=== PATIENT | female | born 1990 | race Two or more races ===

== ENCOUNTER 2018-03-27 03:05 | Inpatient (IN) ==
[2018-03-27 03:17] VITALS: BMI 27.2
[2018-03-27 03:35] LABS: BILIRUBIN,URINE NEGATIVE (NEGATIVE); BLOOD/HEMOGLOBIN,URINE 3+ (NEGATIVE); GLUCOSE, URINE NEGATIVE (NEGATIVE); KETONES,URINE 4+ (NEGATIVE); LEUKOCYTE ESTERASE ,URINE 3+ (NEGATIVE); NITRITES,URINE NEGATIVE (NEGATIVE); PROTEIN,URINE 2+ (NEGATIVE); UROBILINOGEN,URINE NORMAL (NORMAL)
[2018-03-27 03:38] LABS: APPEARANCE,URINE HAZY (CLEAR); COLOR,URINE YELLOW (YELLOW)
[2018-03-27 03:39] LABS: BACTERIA,URINE 1+ /HPF (NEGATIVE); MUCUS,URINE FEW /HPF (NEGATIVE); SQUAMOUS EPITHELIAL CELL,UR FEW /HPF (NEGATIVE)
[2018-03-27 03:43] LABS: AMNISURE ROM TEST NO MEMBRANES RUPTURE (NO RUPTURE)
[2018-03-27] MEDS ORDERED: D5 1/2 NS 1000 ML 1,000 ML IV ONE (03:59)
[2018-03-27] MEDS ORDERED: D5 1/2 NS 1000 ML 1,000 ML IV SCH (04:00)
[2018-03-27] MEDS ORDERED: AQUA-MEPHYTON ADULT INJ ONE (04:13)
[2018-03-27] MEDS ORDERED: PITOCIN IVP ONE (04:26)
[2018-03-27] MEDS ORDERED: PHENERGAN INJ 25 MG IV PRN (04:28)
[2018-03-27] MEDS ORDERED: MOTRIN TAB 800 MG PO PRN ×2 (04:28→05:11)
[2018-03-27] MEDS ORDERED: D5 1/2 NS 1L W PITOCIN 20 UNITS/L 20 UNITS/1,000 ML BAG IV ONE (04:32)
[2018-03-27] MEDS ORDERED: D5 1/2 NS 1000 ML 1,000 ML with PITOCIN 20 UNITS IV SCH ×2 (05:00)
[2018-03-27] MEDS ORDERED: DERMOPLAST SPRAY TOP PRN (05:11)
[2018-03-27] MEDS ORDERED: FLUVIRIN IM ONE (08:00)
[2018-03-27] MEDS ORDERED: ADACEL or BOOSTRIX TDaP VACCINE IM ONE (16:09)
[2018-03-28 06:48] LABS: HEMATOCRIT 29.2 % (36.0-47.0); HEMOGLOBIN 9.9 g/dL (12.0-16.0)
[2018-03-28 12:37] VITALS: BP 112/56
== END 2018-03-28 13:50 | disposition home or self-care (01) | DRG 807 ==
LOC: ER 03:05 → LD 04:00 → MED/SURG 05:20
PROVIDERS: ADMIT Obstetrics & Gynecology Obstetrics; ATTEND Obstetrics & Gynecology Obstetrics
DX: Z3A.39 39 weeks gestation of pregnancy; Z23 Encounter for immunization; Z37.0 Single live birth; O80 Encounter for full-term uncomplicated delivery
CPT/HCPCS: 36415; 59409; 81001; 84112; 85014; 85018; 87086; 90686; 90715; 96365; 99284; A4216; A4222; J2590; J3430; S5010

== ENCOUNTER 2022-07-20 05:37 | Inpatient (IN) ==
[2022-07-20 06:00] VITALS: BMI 29.2
[2022-07-20 06:21] LABS: APPEARANCE,URINE CLEAR (CLEAR); BILIRUBIN,URINE NEGATIVE (NEGATIVE); BLOOD/HEMOGLOBIN,URINE NEGATIVE (NEGATIVE); COLOR,URINE STRAW (YELLOW); GLUCOSE, URINE NEGATIVE (NEGATIVE); KETONES,URINE NEGATIVE (NEGATIVE); LEUKOCYTE ESTERASE ,URINE NEGATIVE (NEGATIVE); NITRITES,URINE NEGATIVE (NEGATIVE); PROTEIN,URINE 1+ (NEGATIVE); UROBILINOGEN,URINE NORMAL (NORMAL)
[2022-07-20 06:25] LABS: BACTERIA,URINE NEGATIVE /HPF (NEGATIVE); RBC,URINE 0-2 /HPF (0-3); SQUAMOUS EPITHELIAL CELL,UR FEW /HPF (NEGATIVE)
[2022-07-20 06:28] LABS: AMNISURE ROM TEST THERE IS A RUPTURE (NO RUPTURE)
[2022-07-20] MEDS ORDERED: REGLAN INJ 10 MG VIAL IVP PRN (06:37)
[2022-07-20] MEDS ORDERED: PITOCIN IVP ONE (06:37)
[2022-07-20] MEDS ORDERED: D5 LR + PITOCIN 10 UNITS/L 10 UNITS/1,000 ML BAG IV PRN (06:37)
[2022-07-20] MEDS ORDERED: STADOL INJ IVP PRN (06:37)
[2022-07-20] MEDS ORDERED: D5 1/2 NS 1,000 ML 1,000 ML IV ONE (06:57)
[2022-07-20] MEDS ORDERED: PITOCIN ONE (06:57)
[2022-07-20] MEDS ORDERED: BETADINE SOLN ONE (06:57)
[2022-07-20] MEDS ORDERED: D5 1/2 NS 1,000 mL + PITOCIN 20 UNITS/L IV 20 UNITS/1,000 ML BAG IV ONE (06:58)
[2022-07-20] MEDS ORDERED: D5 LR + PITOCIN 10 UNITS/L 10 UNITS/1,000 ML BAG IV ONE (06:58)
[2022-07-20 07:09] LABS: RED CELL DISTRIBUTION WIDTH 15.3 % (11.6-16.5)
[2022-07-20 07:19] LABS: ALANINE AMINOTRANSFERASE 24 Units/L (12-78); ALBUMIN 2.7 g/dL (3.4-5.0); ALKALINE PHOSPHATASE 188 Units/L (46-116); ASPARTATE AMINO TRANSFERASE 29 Units/L (15-37); BLOOD UREA NITROGEN 8 mg/dL (7-18); CALCIUM 8.6 mg/dL (8.5-10.1); CARBON DIOXIDE 23.1 mmol/L (21-32); CHLORIDE 105 mmol/L (98-107); COR CA(FOR HYPOALB) 9.6 mg/dL (8.5-10.1); CREATININE 0.43 mg/dL (0.55-1.02); SODIUM 138 mmol/L (136-145); TOTAL PROTEIN 6.4 g/dL (6.4-8.2); eGFR NON BLACK RACES > 60 (>60)
[2022-07-20 07:22] LABS: BASOPHILS # (AUTO) 0.1 X10^3/uL (0.0-0.1); BASOPHILS % (AUTO) 0.6 % (0.2-1.0); EOSINOPHILS # (AUTO) 0.1 x10^3/uL (0.0-0.2); EOSINOPHILS % (AUTO) 1.6 % (0.9-2.9); HEMOGLOBIN 11.7 g/dL (12.0-16.0); LYMPHOCYTES # (AUTO) 2.1 X10^3/uL (1.3-2.9); LYMPHOCYTES % (AUTO) 22.7 % (21.0-51.0); MEAN CORPUSCULAR HEMOGLOBIN 27.5 pg (27.0-34.0); MEAN CORPUSCULAR HGB CONC 33.4 g/dL (33.0-35.0); MEAN CORPUSCULAR VOLUME 82.2 fL (80.0-100.0); MEAN PLATELET VOLUME 11.2 fL (7.4-11.0); MONOCYTES # (AUTO) 0.8 x10^3/uL (0.3-0.8); MONOCYTES % (AUTO) 8.8 % (0.0-13.0); NEUTROPHILS # (AUTO) 6.1 x10^3/uL (2.2-4.8); NEUTROPHILS % (AUTO) 66.3 % (42.0-75.0); RED BLOOD COUNT 4.26 X10^6/uL (3.5-5.4); WHITE BLOOD COUNT 9.3 X10^3/uL (3.6-10.0)
[2022-07-20] MEDS ORDERED: D5 1/2 NS 1,000 ML 1,000 ML IV SCH (08:00)
[2022-07-20] MEDS ORDERED: MOTRIN TAB 800 MG PO PRN (09:38)
[2022-07-20] MEDS: D5 1/2 NS 1,000 ML 1,000 ML with PITOCIN 20 UNITS IV SCH ×4 (10:00→20:49)
[2022-07-20] MEDS ORDERED: AMBIEN PO PRN (10:23)
[2022-07-20] MEDS ORDERED: MILK OF MAGNESIA PO PRN (10:23)
[2022-07-20] MEDS: DERMOPLAST PAIN RELIEF SPRAY TOP PRN ×2 (12:00→20:39)
[2022-07-21] MEDS: D5 1/2 NS 1,000 ML 1,000 ML with PITOCIN 20 UNITS IV SCH ×2 (02:20)
[2022-07-21 05:49] LABS: HEMATOCRIT 27.7 % (36.0-47.0)
[2022-07-21 05:54] LABS: HEMOGLOBIN 9.3 g/dL (12.0-16.0)
[2022-07-21] MEDS ORDERED: PRENATAL PLUS PO SCH (09:00)
[2022-07-21] MEDS ORDERED: NS 100 ML IV 100 ML with VENOFER 400 MG IV NR ×2 (09:01)
[2022-07-21 13:17] VITALS: BP 123/60
== END 2022-07-21 13:05 | disposition home or self-care (01) | DRG 807 ==
LOC: ER 05:37 → LD 06:37 → MED/SURG 10:46
PROVIDERS: ADMIT Obstetrics & Gynecology Obstetrics; ATTEND Obstetrics & Gynecology Obstetrics
DX: O70.0 First degree perineal laceration during delivery; O80 Encounter for full-term uncomplicated delivery; Z3A.39 39 weeks gestation of pregnancy; Z37.0 Single live birth

== ENCOUNTER 2024-04-23 15:00 | Observation (INO) ==
--- NOTE | 2024-04-23 15:04 | ED.ABDFE ---
HPI Time Seen Time Seen by Provider: 04/23/24 15:03 HPI Comment HPI Comment: According to pt she has hx of gallstones .has surgery organized for Wednesday. However she has experienced moderate to sever pain in the right upper belly starting early on today associated with nausea .Used tyenol .Did not help .Here to have herself checked has no fever or chills no vomiting Complaint Doctors Chief Complaint Comments: abdominal pain Reviewed Nurses Notes Review: Yes Source History Provided: Patient Mode of arrival Mode of Arrival: Ambulatory Timing Came on: Gradually Duration Since Onset: Since Onset Duration: Hours Location Location: RUQ Severity Severity: Moderate and Severe Quality Quality: Aching, Colicky and Cramping Modifying factors Worsening Factors: Nothing Associated signs and symptoms Associated Signs and Symptoms: Nausea PMH PMH Past Surgical History: No Surgical History: No History Social History Do you use any recreational Drugs:: No ROS Review of Systems Constitutional: No Symptoms Reported Eyes: No Symptoms Reported ENTM: No Symptoms Reported Respiratoy: No Symptoms Reported Cardiovascular: No Symptoms Reported Gastrointestinal/Abdominal: See HPI Genitourinary: No Symptoms Reported Neurological: No Symptoms Reported Musculoskeletal: No Symptoms Reported PE Vital Signs Vitals: Vital Signs Temperature 97.9 F Pulse Rate 72 Respiratory Rate 20 Respiratory Rate 19 Respiratory Rate 19 Blood Pressure 132/84 O2 Sat by Pulse Oximetry 100 General Limitations: No Limitations General Appearance: Alert and In Distress Head Head Exam: Normal Inspection, Atraumatic and Normocephalic Eyes Eye exam: Normal Appearance, PERRL and EOMI ENT ENT Exam: Normal Oropharynx and Mucous Membranes Moist Neck Neck Exam: Normal Inspection Chest Chest Inspection: Normal Inspection and Symmetric Chest Wall Rise Respiratory Respiratory Exam: Normal Lung Sounds Bilat Respiratory Exam: Bilateral: Clear to Auscultation Cardiovascular Cardiovascular Exam: +S1 and +S2 Abdominal Exam Abdominal Exam: Normal Bowel Sounds, Soft and Tenderness Abdominal Tenderness: RUQ Neurologic Neurological Exam: Alert Skin Skin Exam: Normal Color MDM Differential Diagnosis Differential Diagnosis- Considerations may include:: Cholelethiasis COURSE Treatment Treatment: cbc.cmp,toradolIM ,zofran,levsin Reevaluation 1st: Unchanged ROR Labs Reviewed Laboratory Results Reviewed?: Yes 04/23/24 16:04 04/23/24 16:04 Laboratory: WBC 12.1 X10^3/uL (3.6-10.0) H 04/23/24 16:04 RBC 4.54 X10^6/uL (3.5-5.4) 04/23/24 16:04 Hgb 12.2 g/dL (12.0-16.0) 04/23/24 16:04 Hct 37.1 % (36.0-47.0) 04/23/24 16:04 MCV 81.7 fL (80.0-100.0) 04/23/24 16:04 MCH 26.8 pg (27.0-34.0) L 04/23/24 16:04 MCHC 32.8 g/dL (33.0-35.0) L 04/23/24 16:04 RDW 14.4 % (11.6-16.5) 04/23/24 16:04 Plt Count 243 X10^3/uL (150.0-450.0) 04/23/24 16:04 MPV 9.9 fL (7.4-11.0) 04/23/24 16:04 Neut % (Auto) 75.5 % (42.0-75.0) H 04/23/24 16:04 Lymph % (Auto) 15.2 % (21.0-51.0) L 04/23/24 16:04 Banner % (Auto) 7.7 % (0.0-13.0) 04/23/24 16:04 Eos % (Auto) 1.0 % (0.9-2.9) 04/23/24 16:04 Baso % (Auto) 0.6 % (0.2-1.0) 04/23/24 16:04 Neut # (Auto) 9.2 x10^3/uL (2.2-4.8) H 04/23/24 16:04 Lymph # (Auto) 1.8 X10^3/uL (1.3-2.9) 04/23/24 16:04 Banner # (Auto) 0.9 x10^3/uL (0.3-0.8) H 04/23/24 16:04 Eos # (Auto) 0.1 x10^3/uL (0.0-0.2) 04/23/24 16:04 Baso # (Auto) 0.1 X10^3/uL (0.0-0.1) 04/23/24 16:04 Absolute Nucleated RBC 0.1 /100WBC 04/23/24 16:04 Sodium 136 mmol/L (136-145) 04/23/24 16:04 Corrected Sodium TNP 04/23/24 16:04 Potassium 3.6 mmol/L (3.5-5.1) 04/23/24 16:04 Chloride 101 mmol/L (98-107) 04/23/24 16:04 Carbon Dioxide 28.7 mmol/L (21-32) 04/23/24 16:04 BUN 9 mg/dL (7-18) 04/23/24 16:04 Creatinine 0.56 mg/dL (0.55-1.02) 04/23/24 16:04 Est GFR (MDRD) Af Amer > 60 (>60) 04/23/24 16:04 Est GFR (MDRD) Non-Af > 60 (>60) 04/23/24 16:04 Glucose 108 mg/dL (65-99) H 04/23/24 16:04 Calcium 8.5 mg/dL (8.5-10.1) 04/23/24 16:04 Corrected Calcium TNP 04/23/24 16:04 Total Bilirubin 0.90 mg/dL (0.2-1.0) 04/23/24 16:04 AST 77 Units/L (15-37) H 04/23/24 16:04 ALT 67 Units/L (12-78) 04/23/24 16:04 Alkaline Phosphatase 106 Units/L (46-116) 04/23/24 16:04 Total Protein 7.7 g/dL (6.4-8.2) 04/23/24 16:04 Albumin 3.8 g/dL (3.4-5.0) 04/23/24 16:04 Globulin 3.9 g/dL (2.5-4.5) 04/23/24 16:04 Albumin/Globulin Ratio 1.0 Ratio (1.1-2.1) L 04/23/24 16:04 Opioid Opioid Risk Tool Age (Lui box if 16-45): Yes History of Preadolescent Sexual Abuse: No Total: 1 Total Score Risk Category: Low Risk Copyright: Vladislav FLORES predicting aberrant behaviors Discharge Plan Diagnosis Discharge Problem: Cholelithiasis, Leucocytosis, Abnormal LFTs Discharge Plan Patient Disposition: 09 ADMITTED INPATIENT Condition: Stable Prescriptions: No Action pantoprazole 40 mg tablet,delayed release (DR/EC) 40 mg PO BID sucralfate 1 gram tablet 1 g PO TID ketorolac 10 mg tablet 10 mg PO QID PRN (Reason: pain) Qty: 20 0RF Rx Instructions: maximum total duration of 5 days from all oral, intranasal, or parenteral formulations ondansetron 4 mg tablet,disintegrating 4 mg PO Q6H PRN (Reason: nausea and vomiting) Qty: 15 0RF Health Concerns: Post Hospitalization: new medications and changes needed to prevent readmission or further decline. Pt educated and given instructions on all concerns. Plan of Treatment: Continue with present treatment and follow up plan. Pt is to keep follow up appointment as instructed and take medications as ordered. Orders to Discharge Patient Discharge Orders: Transfer (Routine); Ordered 04/23/24 Ordered By: Dhiraj Oswald Instructions Stand Alone Forms: Find Help Web Site, Post Hospital Follow Up Care ADDITIONAL NOTES Additional Notes Additional Notes: Spoke with dr Abduldiscussed patient s labs and her pain .agreed to have patient admitted for possible cholecystectomy tomorrow
[2024-04-23] MEDS: ZOFRAN ODT PO ONE (15:39)
[2024-04-23] MEDS: TORADOL 30 MG VIAL IM ONE (15:40)
[2024-04-23] MEDS: HYOSCYAMINE SULFATE ODT PO ONE (16:00)
[2024-04-23 16:13] LABS: HEMOGLOBIN 12.2 g/dL (12.0-16.0)
[2024-04-23 16:16] LABS: BASOPHILS # (AUTO) 0.1 X10^3/uL (0.0-0.1); BASOPHILS % (AUTO) 0.6 % (0.2-1.0); EOSINOPHILS # (AUTO) 0.1 x10^3/uL (0.0-0.2); HEMATOCRIT 37.1 % (36.0-47.0); LYMPHOCYTES # (AUTO) 1.8 X10^3/uL (1.3-2.9); LYMPHOCYTES % (AUTO) 15.2 % (21.0-51.0); MEAN CORPUSCULAR HEMOGLOBIN 26.8 pg (27.0-34.0); MEAN CORPUSCULAR HGB CONC 32.8 g/dL (33.0-35.0); MEAN CORPUSCULAR VOLUME 81.7 fL (80.0-100.0); MEAN PLATELET VOLUME 9.9 fL (7.4-11.0); MONOCYTES # (AUTO) 0.9 x10^3/uL (0.3-0.8); MONOCYTES % (AUTO) 7.7 % (0.0-13.0); NEUTROPHILS # (AUTO) 9.2 x10^3/uL (2.2-4.8); NEUTROPHILS % (AUTO) 75.5 % (42.0-75.0); PLATELET COUNT 243 X10^3/uL (150.0-450.0); RED BLOOD COUNT 4.54 X10^6/uL (3.5-5.4); RED CELL DISTRIBUTION WIDTH 14.4 % (11.6-16.5); WHITE BLOOD COUNT 12.1 X10^3/uL (3.6-10.0)
[2024-04-23 16:35] LABS: ALANINE AMINOTRANSFERASE 67 Units/L (12-78); ALBUMIN 3.8 g/dL (3.4-5.0); ALKALINE PHOSPHATASE 106 Units/L (46-116); ASPARTATE AMINO TRANSFERASE 77 Units/L (15-37); BLOOD UREA NITROGEN 9 mg/dL (7-18); CALCIUM 8.5 mg/dL (8.5-10.1); CARBON DIOXIDE 28.7 mmol/L (21-32); CHLORIDE 101 mmol/L (98-107); CREATININE 0.56 mg/dL (0.55-1.02); GLUCOSE 108 mg/dL (65-99); POTASSIUM 3.6 mmol/L (3.5-5.1); SODIUM 136 mmol/L (136-145); TOTAL PROTEIN 7.7 g/dL (6.4-8.2); eGFR NON BLACK RACES > 60 (>60)
[2024-04-23] MEDS ORDERED: MORPHINE SULFATE INJ 2 MG INJ ONE (16:52)
[2024-04-23] MEDS: MORPHINE SULFATE INJ 2 MG INJ IVP ONE (17:02)
[2024-04-23] MEDS: NS 1,000 ML IV 1,000 ML IV SCH (20:34)
[2024-04-23] MEDS: HIBICLENS WASH EXT ONE (20:50)
[2024-04-24] MEDS: HYOSCYAMINE SULFATE ODT ONE (00:32)
[2024-04-24] MEDS: NS 100 ML IV 100 ML ONE (01:00)
[2024-04-24 06:47] LABS: BASOPHILS # (AUTO) 0.1 X10^3/uL (0.0-0.1); BASOPHILS % (AUTO) 0.9 % (0.2-1.0); EOSINOPHILS # (AUTO) 0.1 x10^3/uL (0.0-0.2); EOSINOPHILS % (AUTO) 2.4 % (0.9-2.9); HEMATOCRIT 31.6 % (36.0-47.0); HEMOGLOBIN 10.5 g/dL (12.0-16.0); LYMPHOCYTES % (AUTO) 31.6 % (21.0-51.0); MEAN CORPUSCULAR HEMOGLOBIN 27.4 pg (27.0-34.0); MEAN CORPUSCULAR HGB CONC 33.2 g/dL (33.0-35.0); MEAN CORPUSCULAR VOLUME 82.6 fL (80.0-100.0); MEAN PLATELET VOLUME 10.3 fL (7.4-11.0); MONOCYTES # (AUTO) 0.6 x10^3/uL (0.3-0.8); MONOCYTES % (AUTO) 9.1 % (0.0-13.0); NEUTROPHILS # (AUTO) 3.5 x10^3/uL (2.2-4.8); PLATELET COUNT 204 X10^3/uL (150.0-450.0); RED BLOOD COUNT 3.82 X10^6/uL (3.5-5.4); WHITE BLOOD COUNT 6.2 X10^3/uL (3.6-10.0)
[2024-04-24 07:16] LABS: ALANINE AMINOTRANSFERASE 184 Units/L (12-78); ALBUMIN 2.9 g/dL (3.4-5.0); ALKALINE PHOSPHATASE 107 Units/L (46-116); ASPARTATE AMINO TRANSFERASE 129 Units/L (15-37); BLOOD UREA NITROGEN 7 mg/dL (7-18); CALCIUM 7.8 mg/dL (8.5-10.1); CARBON DIOXIDE 26.4 mmol/L (21-32); CHLORIDE 107 mmol/L (98-107); COR CA(FOR HYPOALB) 8.7 mg/dL (8.5-10.1); CREATININE 0.52 mg/dL (0.55-1.02); GLUCOSE 91 mg/dL (65-99); MAGNESIUM 1.8 mg/dL (2.0-2.9); POTASSIUM 3.4 mmol/L (3.5-5.1); SODIUM 140 mmol/L (136-145); eGFR NON BLACK RACES > 60 (>60)
[2024-04-24 08:56] LABS: SERUM PREGNANCY TEST, QUAL NEGATIVE <10 mIU/mL
[2024-04-24] MEDS ORDERED: VERSED ONE (10:27)
[2024-04-24] MEDS ORDERED: FENTANYL VIAL INJ 250 mcg ONE (10:27)
[2024-04-24] MEDS ORDERED: DIPRIVAN VIAL 20 ML ONE (10:28)
[2024-04-24] MEDS ORDERED: XYLOCAINE 2 % (PLAIN) ONE (10:28)
[2024-04-24] MEDS ORDERED: PEPCID 20 MG VIAL ONE (10:29)
[2024-04-24] MEDS ORDERED: ZOFRAN INJ 4 MG VIAL ONE ×2 (10:29→13:59)
[2024-04-24] MEDS ORDERED: ZEMURON 100 MG VIAL ONE (10:31)
[2024-04-24] MEDS ORDERED: BRIDION ONE (10:33)
[2024-04-24] MEDS: ANCEF VIAL 1 GRAM ONE (11:51)
[2024-04-24] MEDS: LR 1,000 ML IV 1,000 ML IV ONE (11:51)
[2024-04-24] MEDS: VERSED IVP PRN (11:53)
[2024-04-24] MEDS ORDERED: KETAMINE HCL ONE (12:02)
[2024-04-24] MEDS: ANCEF VIAL 1 GRAM IV PRN (12:02)
[2024-04-24] MEDS ORDERED: SUPRANE IN ONE (12:02)
[2024-04-24] MEDS: LR 1,000 ML IV 800 ML IV PRN (12:02)
[2024-04-24] MEDS: ZOFRAN INJ 4 MG VIAL IVP PRN ×3 (12:04→14:37)
[2024-04-24] MEDS: PEPCID 20 MG VIAL IVP PRN (12:04)
[2024-04-24] MEDS: ZEMURON 100 MG VIAL IVP PRN (12:12)
[2024-04-24] MEDS: DIPRIVAN VIAL 150 ML IVP PRN (12:12)
[2024-04-24] MEDS ORDERED: XYLOCAINE 2 % (PLAIN) PRN (12:12)
[2024-04-24] MEDS: KETAMINE HCL IV PRN (12:13)
[2024-04-24] MEDS ORDERED: BENADRYL INJ 50 MG VIAL IVP PRN (12:19)
[2024-04-24] MEDS ORDERED: BARHEMSYS INJ IVP PRN (12:19)
[2024-04-24] MEDS ORDERED: REGLAN INJ 10 MG VIAL IVP PRN (12:19)
[2024-04-24] MEDS: BACTROBAN TOPICAL OINT ONE (12:21)
[2024-04-24] MEDS: FENTANYL VIAL INJ 100 mcg IVP PRN (12:52)
[2024-04-24] MEDS ORDERED: TORADOL 30 MG VIAL ONE (13:01)
[2024-04-24] MEDS: TORADOL 30 MG VIAL IVP PRN (13:02)
[2024-04-24] MEDS: BRIDION IVP PRN (13:09)
[2024-04-24] MEDS ORDERED: DILAUDID INJ ONE (13:53)
[2024-04-24] MEDS: DILAUDID INJ IVP PRN (13:55)
[2024-04-24 15:08] LABS: BASOPHILS # (AUTO) 0.1 X10^3/uL (0.0-0.1); BASOPHILS % (AUTO) 0.6 % (0.2-1.0); EOSINOPHILS # (AUTO) 0.1 x10^3/uL (0.0-0.2); EOSINOPHILS % (AUTO) 0.5 % (0.9-2.9); HEMATOCRIT 36.3 % (36.0-47.0); HEMOGLOBIN 11.8 g/dL (12.0-16.0); LYMPHOCYTES # (AUTO) 1.6 X10^3/uL (1.3-2.9); LYMPHOCYTES % (AUTO) 12.3 % (21.0-51.0); MEAN CORPUSCULAR HEMOGLOBIN 26.9 pg (27.0-34.0); MEAN CORPUSCULAR HGB CONC 32.6 g/dL (33.0-35.0); MEAN CORPUSCULAR VOLUME 82.6 fL (80.0-100.0); MEAN PLATELET VOLUME 9.7 fL (7.4-11.0); MONOCYTES # (AUTO) 0.5 x10^3/uL (0.3-0.8); MONOCYTES % (AUTO) 4.1 % (0.0-13.0); NEUTROPHILS # (AUTO) 10.9 x10^3/uL (2.2-4.8); NEUTROPHILS % (AUTO) 82.5 % (42.0-75.0); PLATELET COUNT 214 X10^3/uL (150.0-450.0); RED BLOOD COUNT 4.39 X10^6/uL (3.5-5.4); RED CELL DISTRIBUTION WIDTH 14.4 % (11.6-16.5); WHITE BLOOD COUNT 13.2 X10^3/uL (3.6-10.0)
[2024-04-24 15:25] LABS: ALANINE AMINOTRANSFERASE 185 Units/L (12-78); ALBUMIN 3.5 g/dL (3.4-5.0); ALKALINE PHOSPHATASE 125 Units/L (46-116); ASPARTATE AMINO TRANSFERASE 106 Units/L (15-37); BLOOD UREA NITROGEN 6 mg/dL (7-18); CALCIUM 7.9 mg/dL (8.5-10.1); CARBON DIOXIDE 24.8 mmol/L (21-32); CHLORIDE 104 mmol/L (98-107); COR NA(FOR HYPERGLY) 138 mmol/L (136-145); CREATININE 0.56 mg/dL (0.55-1.02); GLUCOSE 123 mg/dL (65-99); POTASSIUM 3.3 mmol/L (3.5-5.1); SODIUM 137 mmol/L (136-145); TOTAL PROTEIN 7.1 g/dL (6.4-8.2); eGFR NON BLACK RACES > 60 (>60)
[2024-04-24] MEDS: PHENERGAN INJ 25 MG IM PRN (15:55)
[2024-04-25 06:29] LABS: BASOPHILS # (AUTO) 0.1 X10^3/uL (0.0-0.1); BASOPHILS % (AUTO) 0.7 % (0.2-1.0); EOSINOPHILS # (AUTO) 0.2 x10^3/uL (0.0-0.2); EOSINOPHILS % (AUTO) 1.7 % (0.9-2.9); HEMATOCRIT 31.8 % (36.0-47.0); HEMOGLOBIN 10.6 g/dL (12.0-16.0); LYMPHOCYTES # (AUTO) 2.3 X10^3/uL (1.3-2.9); LYMPHOCYTES % (AUTO) 26.1 % (21.0-51.0); MEAN CORPUSCULAR HEMOGLOBIN 27.4 pg (27.0-34.0); MEAN CORPUSCULAR HGB CONC 33.2 g/dL (33.0-35.0); MEAN CORPUSCULAR VOLUME 82.4 fL (80.0-100.0); MEAN PLATELET VOLUME 9.9 fL (7.4-11.0); MONOCYTES # (AUTO) 0.7 x10^3/uL (0.3-0.8); MONOCYTES % (AUTO) 7.8 % (0.0-13.0); NEUTROPHILS # (AUTO) 5.6 x10^3/uL (2.2-4.8); NEUTROPHILS % (AUTO) 63.7 % (42.0-75.0); PLATELET COUNT 210 X10^3/uL (150.0-450.0); RED BLOOD COUNT 3.86 X10^6/uL (3.5-5.4); RED CELL DISTRIBUTION WIDTH 14.3 % (11.6-16.5); WHITE BLOOD COUNT 8.8 X10^3/uL (3.6-10.0)
[2024-04-25 06:58] VITALS: BMI 28.9
[2024-04-25 07:12] LABS: ALANINE AMINOTRANSFERASE 137 Units/L (12-78); ALKALINE PHOSPHATASE 100 Units/L (46-116); ASPARTATE AMINO TRANSFERASE 71 Units/L (15-37); BLOOD UREA NITROGEN 4 mg/dL (7-18); CARBON DIOXIDE 26.6 mmol/L (21-32); CHLORIDE 106 mmol/L (98-107); COR CA(FOR HYPOALB) 8.8 mg/dL (8.5-10.1); GLUCOSE 93 mg/dL (65-99); MAGNESIUM 1.7 mg/dL (2.0-2.9); SODIUM 141 mmol/L (136-145); TOTAL PROTEIN 6.3 g/dL (6.4-8.2); eGFR NON BLACK RACES > 60 (>60)
[2024-04-25] MEDS: MORPHINE SULFATE INJ 10 MG IVP PRN (07:30)
[2024-04-25 08:00] VITALS: BP 116/63; PULSE 81; TEMP 98.4; O2SAT 98
[2024-04-25 09:04] VITALS: RESP 19
== END 2024-04-25 11:20 | disposition home or self-care (01) ==
LOC: ER 15:00 → MED/SURG 15:00
PROVIDERS: ADMIT Surgery; ATTEND Surgery
DX: K80.12 Calculus of gallbladder with acute and chronic cholecystitis without obstruction; Z59.86 Financial insecurity; R94.5 Abnormal results of liver function studies; E87.6 Hypokalemia; R10.12 Left upper quadrant pain; R10.13 Epigastric pain; E83.42 Hypomagnesemia